=== PATIENT | male | born 1995 | race Caucasian/White ===

== ENCOUNTER 2022-06-18 14:35 | Emergency (ER) | payer OTHER ==
[~2022-06-18] VITALS: Ht 187.9 cm; Wt 83.9 kg
[2022-06-18 14:37] VITALS: BP 132/68
[2022-06-18] MEDS ORDERED: PREDNISONE50 MG PO (14:45)
== END 2022-06-18 14:58 | disposition home or self-care (01) ==
LOC: ED 14:35
DX: L25.9 Unspecified contact dermatitis, unspecified cause (principal)

== ENCOUNTER 2022-10-03 20:38 | Emergency (ER) | payer OTHER ==
[~2022-10-03] VITALS: Ht 213.3 cm; Wt 83.9 kg
[~2022-10-03 20:38] MED LIST: PREDNISONE50 MG PO
[2022-10-03 22:00] LABS: BASO # 0.1 10*3/uL (0.0-0.1); BASO % 0.6 % (0.0-1.0); EOS # 0.2 10*3/uL (0.0-0.4); EOS % 1.8 % (1.0-4.0); HEMATOCRIT 42.2 % (42.0-52.0); LYMPH # 1.3 10*3/uL (1.3-4.4); LYMPH % 13.9 % (27.0-41.0); MEAN CELL VOLUME 88.3 fl (80.0-94.0); MEAN CORPUSCULAR HGB CONC 35.1 g/dl (33.0-37.0); MEAN PLATELET VOLUME 9.8 fl (9.6-12.3); MONO # 0.6 10*3/uL (0.1-1.0); MONO % 6.2 % (3.0-9.0); NEUT # 7.3 10*3/uL (2.3-7.9); NEUT % 77.3 % (47.0-73.0); PLATELET COUNT AUTOMATED 286 10*3/uL (130-400); RED BLOOD COUNT 4.78 10*6/uL (4.50-5.90); RED CELL DISTRI WIDTH 11.8 % (0-14.5); WHITE BLOOD COUNT 9.5 10*3/uL (4.8-10.8)
[2022-10-03 22:17] LABS: ALKALINE PHOSPHATASE 48 U/L (46-116); BUN 17 mg/dl (9-23); CHLORIDE 101 mmol/L (98-107); POTASSIUM 3.5 mmol/L (3.4-5.1); SGPT/ALT 12 U/L (10-49)
[2022-10-03 22:24] LABS: ETHYL ALCOHOL < 3.0 mg/dl (<3)
[2022-10-03 23:01] VITALS: BP 112/63
== END 2022-10-03 23:27 | disposition home or self-care (01) ==
LOC: ED 20:38
PROVIDERS: Physician Assistant
DX: R00.0 Tachycardia, unspecified (principal); T40.715A Adverse effect of cannabis, initial encounter; Y92.89 Other specified places as the place of occurrence of the external cause

== ENCOUNTER → 2024-01-15 | Outpatient (CLI) | payer SELFPAY | END | disposition home or self-care (01) | LOC: US 16:00 | PROVIDERS: ATTEND Nurse Practitioner | DX: D17.22 Benign lipomatous neoplasm of skin and subcutaneous tissue of left arm (principal); D17.1 Benign lipomatous neoplasm of skin and subcutaneous tissue of trunk; Q85.9 Phakomatosis, unspecified ==